=== PATIENT | male | born 1975 | race Caucasian/White ===

== ENCOUNTER → 2021-02-04 | Outpatient (CLI) | payer BC | LOC: EROP 08:10 | DX: U07.1 COVID-19 (principal) | CPT/HCPCS: U0002 ==

== ENCOUNTER 2021-02-19 16:25 | Emergency (ER) | payer OTHER, BC | END 2021-02-19 23:07 | disposition home or self-care (01) | LOC: ER1 16:25 | DX: S46.911A Strain of unspecified muscle, fascia and tendon at shoulder and upper arm level, right arm, initial encounter (principal); S10.93XA Contusion of unspecified part of neck, initial encounter; V49.50XA Passenger injured in collision with unspecified motor vehicles in traffic accident, initial encounter; Y92.410 Unspecified street and highway as the place of occurrence of the external cause | CPT/HCPCS: 71046; 71260; 72128; 73030; 93005; 96372; 99284; J1885; Q9967 ==

== ENCOUNTER → 2021-04-15 | Outpatient (CLI) | payer BC | LOC: EXRD 12:54 | DX: U09.9 Post COVID-19 condition, unspecified (principal); R91.8 Other nonspecific abnormal finding of lung field | CPT/HCPCS: 71046 ==